=== PATIENT | female | born 2000 | race Caucasian/White ===

== ENCOUNTER 2021-07-10 14:31 | Emergency (ER) | payer OTHER, SELFPAY ==
[2021-07-10 15:19] VITALS: BP 104/70; PULSE 84; RESP 18; TEMP 36.4; O2SAT 98; BMI 26.9
[2021-07-10 16:49] LABS: UPreg QC Valid YES; Urine Pregnancy NEGATIVE (NEGATIVE)
--- NOTE | 2021-07-10 17:10 | ED_ITS ---
HPI - Eye Problem General Chief complaint: Headache Stated complaint: eye pain & swelling Time Seen by Provider: 07/10/21 16:56 Source: patient Mode of arrival: ambulatory Limitations: no limitations History of Present Illness HPI Narrative: 20-year-old female with a history of migraines presents to the ER with acute onset of right eye pain, foreign body sensation, increased watering and some swelling. She states this happened a few hours ago when she was at her grandma's house. She is wearing her eyeglasses at the time. She denies any trauma but it feels like something is stuck in there. she also states she had acute onset of her migraine that started about 2 or 3 hours ago as well. She she takes Motrin for her migraines with improvement. She has no neurological complaints. No vision changes. MD chief complaint: eye pain, eye redness and foreign body Onset (ago): hour(s) Onset description: sudden Duration: constant Location: right eye Eye Symptoms: burning, redness, pain and foreign body sensation Place: home Mechanism: none Severity: moderate Severity scale (1-10): 6 If Pain, Quality: burning and aching Associated symptoms: headache Treatments Prior to Arrival: none Related Data Patient tetanus UTD: Yes Previous Rx's Medication Instructions Recorded xsxpnynbgx-wbzpsmxmtrrdw-ubidzvle 1 cap PO Q6H PRN #10 cap 07/10/21 50 mg-300 mg-40 mg capsule (Fioricet) sulfacetamide sodium 10 % eye 1 drp OPHTHALMIC-RIGHT Q4H #5 ml 07/10/21 drops (Bleph-10) Allergies Allergy/AdvReac Type Severity Reaction Status Date / Time No Known Allergies Allergy Verified 07/10/21 15:19 Review of Systems Review of Systems: Constitutional: No Fever, No Chills Eyes: + Eye Pain, + Swelling, + Redness, No vision changes Cardiovascular: No Chest Pain, No SOB, No Orthopnea, No Edema Respiratory: No Cough, No Sputum Gastrointestinal: No Nausea, No Vomiting, No Diarrhea, No abdominal Pain Genitourinary: No Dysuria, No Urinary Frequency, No Hematuria Musculoskeletal: No joint pain, No Myalgias Skin: No Skin Lesions, No rash Neuro: No Weakness, No Numbness, No Dizziness, + Headache Heme/Lymph: No Bruising, No Lymphadenopathy PMFSH Past Medical History Medical History (Updated 07/10/21 @ 18:21 by VALENTINA Shoemaker) Frequent headaches Social History Social History Alcohol intake: never Patient Tobacco Use Status: Never used Tobacco Use of substances other than those prescribed or required for medical reasons: No Advance Directives: No Advance Directives Information Provided: Yes Patient : No Physical Exam Vital Signs: Vital Signs: Last Vital Signs Temp 98.8 F 07/10/21 17:39 Pulse 68 07/10/21 17:39 Resp 14 07/10/21 17:39 BP 110/63 07/10/21 17:39 Pulse Ox 99 07/10/21 17:39 Body Mass Index 26.9 Appearance: Alert. Oriented X3. No acute distress. Eyes: Right sclera with lateral injection. Increased watering. Pupils equal, round and reactive to light. no periorbital swelling or lid swelling. Fluorescein exam reveals a small linear abrasion at the 7 O'clock position ENT: Pharynx normal. Neck: Normal inspection. Neck supple. CVS: Normal heart rate and rhythm. Pulses normal. Respiratory: No respiratory distress. Breath sounds normal. Skin: Skin warm and dry. Normal skin color. Normal skin turgor. No rashes. Extremities: No lower extremity edema. Neuro: Oriented X 3. No motor deficit. No sensory deficit. Course Course Course Narrative: 19-year-old female presenting with right eye pain, redness, foreign body sensation along with a migraine that both started similar time. T hese are 2 separate processes. Her migraine is her typical and usually responds well to NSAIDs. Will give a dose of Ibuprofen now. Fluorescein exam revealed a small corneal abrasion. Eye was irrigated she feels much better. Injection is improved since she came in. No vision changes. Reevaluation(s) Reevaluation #1: Headache improved. Will plan to discharge patient with Fioricet and topical antibiotic drops to prevent infection. Patient counseled and is stable for discharge home with supportive care. MDM - Eye Problem Lab Data Labs: Lab Results 07/10/21 Range/Units 15:59 Urine Test NEGATIVE (NEGATIVE) Critical Care Time Critical Care Time Critical Care Time: No Discharge Plan Discharge Clinical Impression: Migraine Qualifiers: Migraine type: unspecified Status migrainosus presence: without status migrainosus Intractability: not intractable Qualified Code(s): G43.909 - Migraine, unspecified, not intractable, without status migrainosus Corneal abrasion Qualifiers: Encounter type: initial encounter Laterality: right Qualified Code(s): S05.01XA - Injury of conjunctiva and corneal abrasion without foreign body, right eye, initial encounter Patient Disposition: Home, Self-Care Instructions: Migraine Headache (ED), Corneal Abrasion (ED) Prescriptions: New qvuoydckfr-qzdzirswponuj-rglx [Fioricet] 50-300-40 mg capsule 1 cap PO Q6H PRN (Reason: pain) Qty: 10 RF: 0 sulfacetamide sodium [Bleph-10] 10 % drops 1 drp ophthalmic-Right Q4H Qty: 5 RF: 0 Interventions: ED Discharge Assessment Last Done: 07/10/21 18:59 Discharge Date/Time: 07/10/21 18:59
[2021-07-10 17:39] VITALS: BP 110/63; PULSE 68; RESP 14; TEMP 37.1; O2SAT 99
[2021-07-10] MEDS: Ibuprofen 600 MG TABLET PO (18:05)
[2021-07-10] MEDS: Tetracaine HCl/PF 0.5% Oph Sol 4 ML DROPS 1 DROP EYE-LEFT (18:06)
[2021-07-10] MEDS: Fluorescein Sodium STRIP 1 STRIP EYE-RIGHT (18:06)
[2021-07-10] MEDS: Butalb/Acetamin/Caff 50/325/40 TABLET 1 TAB PO (18:08)
--- NOTE | 2021-07-10 18:09 | PC.NURSE ---
Patient c/o headache posterior head 03/29 medicated with fiorocet and ibuprofen. eye drop given. vital signs stable. Will continue to monitor.
== END 2021-07-10 18:59 | disposition home or self-care (01) ==
PROVIDERS: Emergency Provider Emergency Medicine
DX: S05.01XA Injury of conjunctiva and corneal abrasion without foreign body, right eye, initial encounter (principal); G43.909 Migraine, unspecified, not intractable, without status migrainosus; X58.XXXA Exposure to other specified factors, initial encounter; Y93.9 Activity, unspecified; Y92.9 Unspecified place or not applicable; Y99.9 Unspecified external cause status; Z79.899 Other long term (current) drug therapy
CPT/HCPCS: 81025; 99283; 99284

== ENCOUNTER 2022-06-19 14:44 | Inpatient (IN) | payer OTHER, SELFPAY ==
--- NOTE | ~2022-06-19 | CT_ITS ---
EXAMINATION: CT ABDOMEN AND PELVIS WITH CONTRAST CLINICAL INFORMATION: Right lower quadrant and flank pain COMPARISON: 08/30/2019 TECHNIQUE: Multidetector volumetric images were obtained from the superior aspect of the liver through the pubic symphysis following administration 85 mL of Omnipaque 350 intravenous contrast. Sagittal and coronal reformatted images were obtained on the technologist's workstation. Oral contrast: No This CT examination was performed using dose optimization techniques as appropriate, variously including the following: *Automated exposure control *Adjustment of mA and/or kV according to patient size (this includes techniques or standardized protocols for targeted exams where dose is matched to indication/reason for exam; i.e. extremities or head) *Use of iterative reconstruction technique DLP: 415 mGy-cm FINDINGS: LUNG BASES: The visualized lung bases are unremarkable. LIVER, GALLBLADDER, AND BILIARY TREE: The liver is normal in size, shape, and attenuation. No focal hepatic lesion or biliary ductal dilatation is present. The gallbladder is unremarkable with no evidence of radiopaque gallstones, gallbladder wall thickening, or obvious pericholecystic inflammatory changes. PANCREAS: Unremarkable. SPLEEN: Unremarkable. ADRENAL GLANDS: Unremarkable. KIDNEYS AND URETERS: The kidneys are normal in size, shape, and attenuation. No hydronephrosis, hydroureter, or calculi seen. No perinephric stranding. BLADDER: Minimally distended and grossly unremarkable. GASTROINTESTINAL TRACT: No evidence of bowel obstruction or significant wall thickening. The distal portion of the appendix is a slightly thick-walled appearance and is mildly dilated to 8 mm in diameter. Though no significant surrounding inflammatory change is seen at this time, appearance raises concern for mild changes of acute appendicitis in the setting of right lower quadrant pain. No free air is seen. ABDOMINAL WALL: No significant hernia is appreciated. LYMPH NODES: Normal. VASCULAR: Unremarkable. PELVIC VISCERA: Unremarkable for patient age. Trace pelvic free fluid noted. OSSEOUS STRUCTURES: Unremarkable. CT/CT abdomen pelvis w IV con IMPRESSION: 1. Mildly dilated, thick-walled appearance of the distal portion of the appendix, raising concern for mild changes of acute appendicitis in the setting of right lower quadrant pain. 2. Trace pelvic free fluid, which may be physiologic.
[2022-06-19 16:17] VITALS: BP 102/72; PULSE 81; RESP 18; TEMP 36.6; O2SAT 96; BMI 27.8
[2022-06-19 16:34] LABS: MANUAL DIFF FLAG NO
[2022-06-19 16:36] LABS: Basophils Absolute Auto 0.1 X10*3/uL (0.0-0.2); Basophils Percent Auto 0.7 % (0-2); Eosinophils Absolute Auto 0.5 X10*3/uL (0.0-0.4); Eosinophils Percent Auto 6.4 % (0-4); Hematocrit 40.4 % (37.0-47.0); Hemoglobin 13.5 g/dl (12.0-16.0); Imm Gran Abs Auto 0.02 X10*3/uL (0.00-0.03); Imm Gran Pct Auto 0.2 % (0.0-0.4); Lymphocytes Absolute Auto 1.6 X10*3/uL (1.2-4.9); Lymphocytes Percent Auto 19.5 % (20-40); Mean Corpuscular HGB Conc 33.4 g/dl (31.0-35.0); Mean Corpuscular Hemoglobin 27.8 pg (27.0-33.0); Mean Corpuscular Volume 83.1 fL (80.0-98.0); Mean Platelet Volume 9.8 fL (9.4-12.3); Monocytes Absolute Auto 0.4 X10*3/uL (0.1-1.2); Monocytes Percent Auto 5.1 % (2-11); Neutrophils Absolute Auto 5.5 x10*3/uL (2.0-8.3); Neutrophils Percent Auto 68.1 % (45-73); Platelet Count 270 X10*3/uL (160-400); Red Blood Count 4.86 X10*6/uL (4.20-5.50); Red Cell Distribution Width 12.4 % (11.0-16.0); White Blood Count 8.1 X10*3/uL (4.8-10.8)
[2022-06-19 16:52] LABS: Alanine Aminotransferase 16 U/L (0-31); Albumin Level 4.3 g/dL (3.5-5.0); Alkaline Phosphatase 88 U/L (39-117); Anion Gap 13 (12-20); Aspartate Amino Transferase 17 U/L (5-31); Bilirubin Total 0.3 mg/dL (0.0-1.0); Blood Urea Nitrogen 15 mg/dL (9-16); Calcium 9.3 mg/dL (8.4-10.2); Carbon Dioxide 25 mmol/L (22-29); Chloride 106 mmol/L (96-108); Creatinine Clr Calc Pharmacy 101.4; Estimated Glomerular Filt Rate > 60; Glucose Random 117 mg/dL (60-115); Potassium 3.8 mmol/L (3.3-5.1); Sodium 140 mmol/L (135-145); Total Protein 7.3 g/dL (6.5-8.0)
--- NOTE | 2022-06-19 22:19 | ED_ITS ---
HPI - General Adult General Chief complaint: Abdominal Pain Stated complaint: R flank pain/Fever Time Seen by Provider: 06/19/22 22:17 Source: patient Mode of arrival: ambulatory Limitations: no limitations History of Present Illness HPI narrative: 21 year old female hx of asthma and lactose intolerance presents w/ 3 days of RLQ with radiation to R. flank. Patient reports pain is severe in nature 03/29, reports it was initially and aching pain/ discomfort however now it is very uncomfortable and describes it as a constant sharp pain. Pain is worse when laying on left side. Tells me it has been gradually worsening over the past few days. Reports subjective fevers and chills which resolved with advil. Patient still has her appendix and gallbladder. Patient tells me she has baseline chest discomfort and shortness of breath secondary to asthma however unchanged from her typical. Patient is not on blood thinners, no history of PE or DVT, not on control, denies long travel, denies history of smoking, no unilateral leg swelling or recent surgeries, no history of cancer. She has been eating and dri nking. Denies changes in urination, vomiting, headache, dizziness, weakness. Related Data Previous Rx's Medication Instructions Recorded vrpqmglleo-gakfvutlnuexg-jpiifisw 1 cap PO Q6H PRN pain #10 caps 07/10/21 50 mg-300 mg-40 mg capsule (Fioricet) sulfacetamide sodium 10 % eye 1 drp ophthalmic-Right Q4H #5 mL 07/10/21 drops (Bleph-10) Allergies Allergy/AdvReac Type Severity Reaction Status Date / Time No Known Allergies Allergy Verified 06/19/22 16:17 Review of Systems Review of Systems: Constitutional : No Weight loss, + Fever, + Chills, + Fatigue, + Malaise ENT/Mouth : No sore throat, No Rhinorrhea Eyes: No Eye Pain, No Swelling, No Redness Cardiovascular : No Chest Pain, No SOB, No Dyspnea on Exertion, No Orthopnea, No Edema, No Palpitations Respiratory : No Cough, No Sputum, No Wheezing Gastrointestinal : + Nausea, No Vomiting, No Diarrhea, No Constipation, + abdominal Pain, No Hematochezia, No Melena Genitourinary : No Dysuria, No Urinary Frequency, No Hematuria, Musculoskeletal : No joint pain, No Myalgias, No Joint Swelling, + flank pain Skin : No Skin Lesions, No rash Neuro : No Weakness, No Numbness, No Dizziness, No Headache Psych : No Anxiety/Panic, No Depression All other systems reviewed and are negative Yes all other systems are reviewed and are negative [facility] Past Medical History Attestation statement: The following information was validated with the patient. Source: old records reviewed and nursing notes reviewed Medical History Frequent headaches Social History Social History Alcohol intake: never Patient Tobacco Use Status: Never used Tobacco Advance Directives: No Advance Directives Information Provided: No Physical Exam ED Vital Signs: Vital Signs - 24 hr 06/19/22 16:17 Temperature 97.8 F Pulse Rate 81 Respiratory Rate 18 Blood Pressure 102/72 Pulse Oximetry 96 Oxygen Delivery Method Room Air BMI result Body Mass Index 27.8 vss Appearance: Alert.? Oriented X3.? No acute distress.? Head: Normocephalic, atraumatic, no step-offs or deformities Eyes: Pupils equal, round and reactive to light.? ENT: Pharynx normal.? Neck: Normal inspection.? Neck supple.? CVS: Normal heart rate and rhythm.? Pulses normal.? Respiratory: No respiratory distress.? Breath sounds normal.? Abdomen: Soft and + RLQ & RUQ tenderness.?( + rosving and mcburneys point) Skin: Skin warm and dry.? Normal skin color.? Normal skin turgor.? Extremities: No lower extremity edema.? No calf ttp. 5/5 strength to bilateral upper and lower extremities Back: No CVA tenderness bilaterally Neuro: Oriented X 3.? No motor deficit.? No sensory deficit. CN 2-12 intact Course Reevaluation(s) Reevaluation #1: CBC appears to be within normal limits. Chemistry with no acute findings. Urine, hCG and CT of the abdomen pelvis pending. Time: 22:22 Reevaluation #2: CT concerning for appendicitis. Will reach out to surgery at this time. Time: 23:49 Reevaluation #3: At this time patient NPO, surgery will admit to their service. I spoke to . Time: 00:02 Medical Decision Making MDM Narrative Medical decision making narrative: 2219 21 year old female presents w/ RLQ and R. flank pain X3 days. PE pain w/ palpation of RUQ AND RLQ. VSS. Will rule out UTI/cystitis, appendicitis and cholecystiits.. No signs of acute abdomen. Unlikely pylo. Will rule out kidney stones. Medical Records Medical records reviewed: Yes I reviewed the patient's medical records. Lab Data Lab results reviewed: Yes I reviewed the patient's lab results. Result diagrams: 06/19/22 16:28 06/19/22 16:28 Labs: Lab Results 06/19/22 06/19/22 06/19/22 Range/Units 16:28 16:28 16:28 WBC 8.1 (4.8-10.8) X10*3/uL RBC 4.86 (4.20-5.50) X10*6/uL Hgb 13.5 (12.0-16.0) g/dl Hct 40.4 (37.0-47.0) % MCV 83.1 (80.0-98.0) fL MCH 27.8 (27.0-33.0) pg MCHC 33.4 (31.0-35.0) g/dl RDW 12.4 (11.0-16.0) % Plt Count 270 (160-400) X10*3/uL MPV 9.8 (9.4-12.3) fL Immature Gran % (Auto) 0.2 (0.0-0.4) % Neut % (Auto) 68.1 (45-73) % Lymph % (Auto) 19.5 L (20-40) % [place] % (Auto) 5.1 (2-11) % Eos % (Auto) 6.4 H (0-4) % Baso % (Auto) 0.7 (0-2) % Lymph # (Auto) 1.6 (1.2-4.9) X10*3/uL [place] # (Auto) 0.4 (0.1-1.2) X10*3/uL Eos # (Auto) 0.5 H (0.0-0.4) X10*3/uL Baso # (Auto) 0.1 (0.0-0.2) X10*3/uL Abs Immat Gran (auto) 0.02 (0.00-0.03) X10*3/uL Absolute Neuts (auto) 5.5 (2.0-8.3) x10*3/uL Absolute Nucleated RBC 0.000 (0.0-0.012) X10*3/uL Nucleated RBC % (auto) 0.0 (0.0-0.2) /100WBC Sodium 140 (135-145) mmol/L Potassium 3.8 (3.3-5.1) mmol/L Chloride 106 (96-108) mmol/L Carbon Dioxide 25 (22-29) mmol/L Anion Gap 13 (12-20) BUN 15 (9-16) mg/dL Creatinine 0.70 (0.5-1.4) mg/dL Estim Creat Clear Calc 101.4 Estimated GFR > 60 Random Glucose 117 H (60-115) mg/dL Calcium 9.3 (8.4-10.2) mg/dL Total Bilirubin 0.3 (0.0-1.0) mg/dL AST 17 (5-31) U/L ALT 16 (0-31) U/L Alkaline Phosphatase 88 (39-117) U/L Troponin I High Sens < 3.5 (<3.5-17.0) ng/L Total Protein 7.3 (6.5-8.0) g/dL Albumin 4.3 (3.5-5.0) g/dL Beta HCG, Quant < 2 mIU/mL Urine Color Urine Appearance Urine pH (5.0-9.0) Ur Specific [place] (1.005-1.025) Urine Protein (Neg-Trace) mg/dL Urine Glucose (UA) (Negative) mg/dL Urine Ketones (Negative) mg/dL Urine Blood (Negative) Urine Nitrite (Negative) Ur Leukocyte Esterase (Negative) 06/19/22 Range/Units 22:55 WBC (4.8-10.8) X10*3/uL RBC (4.20-5.50) X10*6/uL Hgb (12.0-16.0) g/dl Hct (37.0-47.0) % MCV (80.0-98.0) fL MCH (27.0-33.0) pg MCHC (31.0-35.0) g/dl RDW (11.0-16.0) % Plt Count (160-400) X10*3/uL MPV (9.4-12.3) fL Immature Gran % (Auto) (0.0-0.4) % Neut % (Auto) (45-73) % Lymph % (Auto) (20-40) % [place] % (Auto) (2-11) % Eos % (Auto) (0-4) % Baso % (Auto) (0-2) % Lymph # (Auto) (1.2-4.9) X10*3/uL [place] # (Auto) (0.1-1.2) X10*3/uL Eos # (Auto) (0.0-0.4) X10*3/uL Baso # (Auto) (0.0-0.2) X10*3/uL Abs Immat Gran (auto) (0.00-0.03) X10*3/uL Absolute Neuts (auto) (2.0-8.3) x10*3/uL Absolute Nucleated RBC (0.0-0.012) X10*3/uL Nucleated RBC % (auto) (0.0-0.2) /100WBC Sodium (135-145) mmol/L Potassium (3.3-5.1) mmol/L Chloride (96-108) mmol/L Carbon Dioxide (22-29) mmol/L Anion Gap (12-20) BUN (9-16) mg/dL Creatinine (0.5-1.4) mg/dL Estim Creat Clear Calc Estimated GFR Random Glucose (60-115) mg/dL Calcium (8.4-10.2) mg/dL Total Bilirubin (0.0-1.0) mg/dL AST (5-31) U/L ALT (0-31) U/L Alkaline Phosphatase (39-117) U/L Troponin I High Sens (<3.5-17.0) ng/L Total Protein (6.5-8.0) g/dL Albumin (3.5-5.0) g/dL Beta HCG, Quant mIU/mL Urine Color Yellow Urine Appearance Cloudy Urine pH 6.5 (5.0-9.0) Ur Specific [place] >= 1.030 H (1.005-1.025) Urine Protein Negative (Neg-Trace) mg/dL Urine Glucose (UA) Negative (Negative) mg/dL Urine Ketones Trace (Negative) mg/dL Urine Blood Negative (Negative) Urine Nitrite Negative (Negative) Ur Leukocyte Esterase Negative (Negative) Critical Care Time Critical Care Time Critical Care Time: No Discharge Plan Discharge Clinical Impression: Acute appendicitis Patient Disposition: Admitted As Inpatient Prescriptions: No Action lfvthvpmdx-xgklngnnaklvc-yaee [Fioricet] 50-300-40 mg capsule 1 cap PO Q6H PRN (Reason: pain) Qty: 10 0RF sulfacetamide sodium [Bleph-10] 10 % drops 1 drp ophthalmic-Right Q4H Qty: 5 0RF
--- NOTE | 2022-06-19 22:28 | ECG_ITS ---
Test Reason : SOB Blood Pressure : / mmHG Vent. Rate : 066 BPM Atrial Rate : 066 BPM P-R Int : 192 ms QRS Dur : 080 ms QT Int : 394 ms P-R-T Axes : 058 030 041 degrees QTc Int : 413 ms Sinus rhythm with marked sinus arrhythmia RSR' or QR pattern in V1 suggests right ventricular conduction delay Borderline ECG When compared with ECG of 06-MAR-2020 19:08, No significant change was found Referred By: Ronni Potter Electronically Signed By:ODILIA WRAY MD
[2022-06-19 22:45] LABS: HCG Quantitative < 2 mIU/mL
[2022-06-19 22:56] LABS: Troponin-I High Sensitivity < 3.5 ng/L (<3.5-17.0)
[2022-06-19 23:03] LABS: Appearance Urine Cloudy; Color Urine Yellow; Glucose Urine UA Negative (Negative); Leukocyte Esterase Urine Negative (Negative); Nitrite Urine Negative (Negative); PH 6.5 (5.0-9.0); Specific Gravity - Urine >= 1.030 (1.005-1.025); Urine Blood Negative (Negative); Urine Ketones Trace mg/dL (Negative); Urine Protein Negative (Neg-Trace)
[2022-06-19] MEDS: iohexoL 350 MG/ML 100 ML INFUS..BTL 85 ML IV (23:29)
[2022-06-20] VITALS (14 sets, daily range): BP systolic 103–120; BP diastolic 57–79; PULSE 61–96; RESP 14–19; TEMP 36.2–36.8; O2SAT 95–100
[2022-06-20] MEDS: Ketorolac Tromethamine 15 MG/ML VIAL 30 MG IVPUSH (00:07)
[2022-06-20] MEDS: 0.9 % Sodium Chloride 1,000 ML 999 ML IV (00:07)
--- NOTE | 2022-06-20 00:10 | PC.NURSE ---
pt a&ox3, vss, 20G IV placed left AC, pt reporting 8/10 right-sided abd/flank pain, medicated per provider order. EKG pending.
[2022-06-20] MEDS: Piperacillin Sodium/Tazobactam 3.375 GM in 0.9 % Sodium Chloride 50 ML IV (02:23)
[2022-06-20] MEDS: Dextrose 5 % and 0.9 % NaCl 1,000 ML 100 ML IVCONT ×2 (02:37→16:27)
[2022-06-20 02:45] LABS: COVID-19 Test Negative (Negative)
[2022-06-20 02:54] LABS: Lactic Acid 0.7 mmol/L (0.5-2.0)
--- NOTE | 2022-06-20 07:35 | PHA.MEDREC ---
Pharmacy Consult ? Medication Reconciliation Pharmacy has completed the medication reconciliation.
--- NOTE | 2022-06-20 08:32 | P.HPGS_ITS ---
History of Present Illness History of Present Illness Date of Service: 06/20/22 <Shala Bruce PA-C - Last Filed: 06/20/22 08:50> 06/20/22 <Sanford Lauren MD - Last Filed: 06/20/22 09:52> Chief complaint: abdo pain <Shala Bruce PA-C - Last Filed: 06/20/22 08:50> Narrative: Diego Collier is a 21 year old female with PMH of asthma who presented to the ED with complaints of RLQ pain. She reports she developed the pain on Sunday. It was located in the lower abdominal pain. It became more localized to the RLQ and sharp on Sunday and increased in severity. She therefore presented to the ED for evaluation. The pain was associated with nausea without vomiting and low grade fever/chills. She denies diarrhea. She denies a previous similar pain. Work up in the ED included CBC/BMP/LFTs which were all WNL. CT scan abd/pelvis showed the tip of the appendix is slightly thick-walled and is mildly dilated. She reports she has asthma. She has not been on any medications or inhalers because she has not seen her PCP although she reports difficulty with managing her symptoms since she had Covid last year. <Shala Bruce PA-C - Last Filed: 06/20/22 08:50> Review of Systems Constitutional: Constitutional: Reports as per HPI and Denies malaise <Shala Bruce PA-C - Last Filed: 06/20/22 08:50> ENT: Denies dizziness <Shala Bruce PA-C - Last Filed: 06/20/22 08:50> Cardiovascular: Cardiovascular: Denies chest pain and Denies dyspnea <Shala Bruce PA-C - Last Filed: 06/20/22 08:50> Respiratory: Respiratory: Denies dyspnea <THOMAS Duncan Last Filed: 06/20/22 08:50> Gastrointestinal: Gastrointestinal: Reports as per HPI <THOMAS Duncan Last Filed: 06/20/22 08:50> Genitourinary: Genitourinary: Denies hematuria and Denies dysuria <Shala Bruce PA-C - Last Filed: 06/20/22 08:50> Integumentary/Breasts: Skin/Breast: Denies rash <Shala Bruce PA-C - Last Filed: 06/20/22 08:50> Neurologic: Denies dizziness <Shala Bruce PA-C - Last Filed: 06/20/22 08:50> [facility] Past Medical History Medical History: Medical History (Updated 06/20/22 @ 08:40 by Shala Bruce PA-C) Asthma Frequent headaches <Shala Bruce PA-C - Last Filed: 06/20/22 08:50> Surgical History Surgical History: Surgical History (Updated 06/20/22 @ 08:41 by Shala Bruce PA-C) History of tonsillectomy <Shala Bruce PA-C - Last Filed: 06/20/22 08:50> Social History Social History: Social History Alcohol intake: never Patient Tobacco Use Status: Never used Tobacco Are you DNR?: No Advance Directives: No Advance Directives Information Provided: No Recently lost weight without trying: No Patient : No service: No Current occupational status: employed <Shala Bruce PA-C - Last Filed: 06/20/22 08:50> Meds Allergies/Adverse reactions: Allergies Allergy/AdvReac Type Severity Reaction Status Date / Time No Known Allergies Allergy Verified 06/19/22 16:17 <Shala Bruce PA-C - Last Filed: 06/20/22 08:50> Active Medications: Current Medications Dextrose/Sodium Chloride (D5ns) 1,000 mls @ 100 mls/hr IVCONT .Q10H JOSE MARTIN Last Admin: 06/20/22 02:37 Dose: 100 mls/hr Piperacillin Sod/Tazobactam (Sod 3.375 gm/ Sodium Chloride) 50 mls @ 100 mls/hr IV RQ6H JOSE MARTIN Ondansetron HCl (Ondansetron Hcl 4 Mg/2 Ml Vial) 4 mg IVPUSH Q8H PRN PRN Reason: Nausea and Vomiting Pharmacy Consult (Consult Rx Perform Med Rec) 1 each MISCELLANE ONCE PRN PRN Reason: Consult order Sodium Chloride (0.9 % Sodium Chloride Flush 3 Ml Syringe) 3 ml IVFLUSH QSALFT COUNTS INCLUDE 234 BEDS AT [facility] Last Admin: 06/20/22 07:35 Dose: Not Given <THOMAS Duncan Last Filed: 06/20/22 08:50> Home medications: Home Medications Medication Instructions Recorded Confirmed Last Taken Type cetirizine 10 mg tablet (Zyrtec) 10 mg PO DAILY 06/20/22 06/20/22 06/18/22 History <THOMAS Duncan Last Filed: 06/20/22 08:50> Physical Exam Vital Signs: Vital Signs: Last Vital Signs Temp 97.5 F 06/20/22 04:33 Pulse 78 06/20/22 04:33 Resp 16 06/20/22 04:33 BP 103/57 L 06/20/22 04:33 Pulse Ox 99 06/20/22 04:33 O2 Del Method 06/20/22 04:33 BMI result Body Mass Index 27.8 <THOMAS Duncan Last Filed: 06/20/22 08:50> Const: General: comfortable, no acute distress and alert <THOMAS Duncan Last Filed: 06/20/22 08:50> Orientation/consciousness: patient oriented x3 <THOMAS Duncan Last Filed: 06/20/22 08:50> Resp: Effort & Inspection: normal respiratory effort <THOMAS Duncan Last Filed: 06/20/22 08:50> Auscultation: clear to auscultation bilaterally <THOMAS Duncan Last Filed: 06/20/22 08:50> Cardio: Rate: regular rate <THOMAS Duncan Filed: 06/20/22 08:50> GI: Inspection: No distended and No scar <THOMAS Duncan Last Filed: 06/20/22 08:50> Palpation (GI): Soft to palpation, Tenderness to palpation present (GI) in the RUQ, at McBurney's point and Rovsing's sign positive, no guarding and not rigid <THOMAS Duncan Last Filed: 06/20/22 08:50> Percussion: Yes normal to percussion <THOMAS Duncan Last Filed: 06/20/22 08:50> Skin: General skin exam: no rashes or lesions noted <THOMAS Duncan Last Filed: 06/20/22 08:50> Neuro: General: patient oriented x3 and moves all extremities <THOMAS Duncan Last Filed: 06/20/22 08:50> Extrem: General: Yes no clubbing, cyanosis or edema <THOMAS Duncan Last Filed: 06/20/22 08:50> Results Results Labs: Short CBC 06/19/22 Range/Units 16:28 WBC 8.1 (4.8-10.8) X10*3/uL Hgb 13.5 (12.0-16.0) g/dl Hct 40.4 (37.0-47.0) % Plt Count 270 (160-400) X10*3/uL BMP 06/19/22 16:28 Sodium 140 Potassium 3.8 Chloride 106 Carbon Dioxide 25 BUN 15 Creatinine 0.70 Calcium 9.3 Liver Function 06/19/22 Range/Units 16:28 Total Bilirubin 0.3 (0.0-1.0) mg/dL AST 17 (5-31) U/L ALT 16 (0-31) U/L Alkaline Phosphatase 88 (39-117) U/L Albumin 4.3 (3.5-5.0) g/dL Urine 06/19/22 Range/Units 22:55 Urine Color Yellow Urine Appearance Cloudy Urine pH 6.5 (5.0-9.0) Ur Specific [place] >= 1.030 H (1.005-1.025) Urine Protein Negative (Neg-Trace) mg/dL Urine Glucose (UA) Negative (Negative) mg/dL <THOMAS Duncan Last Filed: 06/20/22 08:50> Assessment and Plan (1) Acute appendicitis: Status: Acute <THOMAS Duncan Last Filed: 06/20/22 08:50> Patient with right lower quadrant pain x3 days states that this does not seem to be getting better CT scan suggestive of tip appendicitis exam - tender in right lower quadrant, with Rovsing sign I explained to her option of proceeding with appendectomy versus IV antibiotic treatment and observation I reviewed benefits of each option she wants to proceed with appendectomy - I reviewed with her the technique of lap appy possible open and explained the risks, benefits, and alternatives she says he understands and wants to proceed. Patient was seen and examined independently - agree with VALENTINA Bruce <Sanford Lauren MD - Last Filed: 06/20/22 09:52> 21 year old female who presented to the ED with complaints of RLQ pain with RLQ tenderness and +rovsign sign on exam with CT demonstrating dilated and thickened tip of the appendix. She is well appearing with stable vitals and a normal leukocytosis. Treatment options were discussed including observation and IV abx or proceeding with lap appendectomy possible open. Risks and benefits were discussed including infection, bleeding, injury to surrounding structures including bowel, liver, vasculature, bile ducts, risk of MO and blood clots. She elected to proceed with surgery. She will be added onto the OR schedule for today. She is NPO and on IVF with PRN analgesics. <Shala Bruce PA-C - Last Filed: 06/20/22 08:50> Quality Stroke Does the patient have a stroke diagnosis?: No <Shala Bruce PA-C - Last Filed: 06/20/22 08:50> VTE Prior VTE?: No <Shala Bruce PA-C - Last Filed: 06/20/22 08:50> VTE Risk Level:: Surgical - low <Shala Bruce PA-C - Last Filed: 06/20/22 08:50> VTE Device Contraindication: Treatment Not Indicated <Shala Bruce PA-C - Last Filed: 06/20/22 08:50> VTE Drug Contraindication: Treatment Not Indicated <Shala Bruce PA-C - Last Filed: 06/20/22 08:50> Procedures Date of Service Date of Service: 06/20/22 <Shala Bruce PA-C - Last Filed: 06/20/22 08:50>
--- NOTE | 2022-06-20 08:42 | MHC.CM.PN ---
Home self care is the goal and CM will continue to follow for possible need to adjust the dc plan.
--- NOTE | 2022-06-20 10:06 | PC.NURSE ---
PT SENT TO or
[2022-06-20] MEDS: Lactated Ringers 1,000 ML 50 ML IVCONT (10:10)
--- NOTE | 2022-06-20 13:17 | W.PM.OPN ---
Operative Note Operative Note Date of Service: 06/20/22 Narrative: Preop diagnosis: Acute appendicitis Postop diagnosis: Acute appendicitis Procedure: Laparoscopic appendectomy Surgeon: Sanford Lauren MD Supervisor [employer]: VALENTINA Kay student The patient is a 21-year-old female admitted last night because of right lower quadrant pain with a CT scan suggestive of early acute appendicitis. She continued to have pain this morning and was tender on the right lower quadrant with Rovsing's sign. I explained to her the option of proceeding with appendectomy. She understood the technique of laparoscopic appendectomy and wanted to proceed. She was aware of the risks, benefits, and alternatives. She was brought to the operating room and placed supine under general anesthesia via endotracheal tube. A Andino catheter was inserted. The abdomen was prepped and draped in the usual sterile fashion. A surgical time-out was done. The patient received Cefotan 2 g IV preoperatively. I made a short supraumbilical incision using a blade 15 and this was carried down through the full-thickness of the skin and subcutaneous fat down to the fascia. The fascia was incised. The peritoneum was entered. Through this incision a Turner port was introduced. Pneumoperitoneum was introduced to a pressure of 15 minutes hg. From here on the rest of procedure was done under vision with the 5 mm 30 degree laparoscope. With laparoscopic visualization I proceeded to insert a 5 mm port in the left lower quadrant as well as the suprapubic margin via two short stab incisions. Graspers were placed through these working ports. The patient was placed bertram head-down and [id number] position. The small bowel loops were reflected away from the right lower quadrant. The appendix was immediately visualized. This was looped upon itself. There were adhesions around the appendix which I carefully lysed using blunt dissection with the graspers. By doing so I was able to completely visualize the entire length of the appendix. The tip of the appendix appeared edematous and indurated. The rest of the appendix did not appear to be significantly inflamed. I carefully did blunt dissection using the [place] dissector on the mesentery of the base of the appendix. Once a good mesenteric window was created, I used the Endo-MALIK 30 mm stapler across the base of the appendix. This was fired to divide the base of the appendix. There was note of a residual attached wall of appendix which we had to divide by a 2nd application of the Endo-MALIK 30 mm stapler. The appendix was then completely transected. I retracted the appendix anteriorly to put this on stretch and expose the entire mesoappendix. I used the LigaSure to divide the entire mesentery of the appendix until this was completely transected. The appendix therefore was retrieved through an endobag through the umbilical incision. I reinserted the Turner port and re-insufflated. I examined all 4 quadrants. There was some minimal free fluid in the cul-de-sac. The uterus appeared mildly erythematous but there were no other significant findings on the rest of the peritoneal cavity. I observed the staple line. This appeared intact and hemostatic. I pulled the omentum to cover the staple line. I then proceeded to desufflate through the port sites. I removed all ports and closed the fascia of the umbilical incision with a nnbvoz-de-[id number] Dexon 0 stitch. Skin closure was achieved on all incisions using Dexon 4-0 subcuticular running sutures. All incisions were infiltrated with Marcaine 0.5% for postop analgesia. Steri-Strips and dressings were applied. The Andino catheter was removed. The procedure was completed. The patient tolerated the procedure well. There were no immediate complications. Initial and final counts of sponges and instruments were correct. Estimated blood loss was about 20 cc. The patient was extubated without difficulty and transferred to recovery room with stable vital signs.
[2022-06-20] MEDS: ondansetron HCL 4 MG/2 ML VIAL IVPUSH ×2 (14:15→18:42)
[2022-06-20] MEDS: oxyCODONE HCl Immed Release 5 MG TABLET PO (14:27)
--- NOTE | 2022-06-20 14:46 | PM.EVENT ---
Event Note Date of Service: 06/28/22 Event Note: Seen postop Underwent laparoscopic appendectomy earlier Seems to have adequate pain control Stable vital signs Abdomen soft Appendix was indurated at the tip Pain management Diet as tolerated Possible home tomorrow Discussed with patient Jeanette figueroa
[2022-06-20] MEDS: Morphine Sulfate 2 MG/ML CARTRIDGE IVPUSH (16:26)
[2022-06-20] MEDS: 0.9 % Sodium Chloride Flush 3 ML SYRINGE IVFLUSH (16:27)
[2022-06-21] MEDS: Dextrose 5 % and 0.9 % NaCl 1,000 ML 100 ML IVCONT (02:06)
[2022-06-21 03:57] VITALS: BP 106/68; PULSE 78; RESP 16; TEMP 36.1; O2SAT 97
[2022-06-21] MEDS: oxyCODONE HCl Immed Release 5 MG TABLET PO (04:05)
[2022-06-21] MEDS: Ibuprofen 600 MG TABLET PO ×2 (04:05→12:45)
[2022-06-21 07:37] VITALS: BP 113/65; PULSE 83; RESP 18; TEMP 36.9; O2SAT 98
--- NOTE | 2022-06-21 08:07 | PM.PNGS ---
Subjective Subjective Date of Service: 06/21/22 Interval history: says she is ok good pain control no N/V Physical Exam Vital Signs: Vital Signs: Last Vital Signs Temp 98.5 F 06/21/22 07:37 Pulse 83 06/21/22 07:37 Resp 18 06/21/22 07:37 BP 113/65 06/21/22 07:37 Pulse Ox 98 06/21/22 07:37 O2 Del Method 06/21/22 07:37 O2 Flow Rate 2 06/20/22 13:45 BMI result Body Mass Index 27.8 Const: General: comfortable and no acute distress Resp: Effort & Inspection: normal respiratory effort Cardio: Rate: regular rate GI: Other: dressings dry Palpation (GI): Soft to palpation, not firm and no guarding Objective Data Active Medications Fentanyl (Fentanyl Citrate/Pf 100 Mcg/2 Ml Vial) 50 mcg IVPUSH Q5M PRN; Protocol PRN Reason: Pain, Moderate (Pain Scale 4-6 Hydromorphone HCl (Hydromorphone Hcl 0.5 Mg/0.5 Ml Syringe) 0.5 mg IVPUSH Q5M PRN; Protocol PRN Reason: Pain, Severe (Pain Scale 7-10) Dextrose/Sodium Chloride (D5ns) 1,000 mls @ 100 mls/hr IVCONT .Q10H JOSE MARTIN Last Admin: 06/21/22 02:06 Dose: 100 mls/hr Documented By: MARIANA Promethazine HCl 6.25 mg/ (Sodium Chloride) 50.25 mls @ 201 mls/hr IV ONCE PRN PRN Reason: Nausea and Vomiting Ibuprofen (Ibuprofen 600 Mg Tablet) 600 mg PO Q6H PRN PRN Reason: Pain, Moderate (Pain Scale 4-6 Last Admin: 06/21/22 04:05 Dose: 600 mg Documented By: MARIANA Morphine Sulfate (Morphine Sulfate 2 Mg/Ml Cartridge) 2 mg IVPUSH Q3H PRN; Protocol PRN Reason: Pain, Severe (Pain Scale 7-10) Last Admin: 06/20/22 16:26 Dose: 2 mg Documented By: ROSA M Ondansetron HCl (Ondansetron Hcl 4 Mg/2 Ml Vial) 4 mg IVPUSH Q8H PRN PRN Reason: Nausea and Vomiting Last Admin: 06/20/22 18:42 Dose: 4 mg Documented By: SHERRELL Oxycodone HCl (Oxycodone Hcl Immed Release 5 Mg Tablet) 5 mg PO Q4H PRN PRN Reason: Pain, Moderate (Pain Scale 4-6 Last Admin: 06/21/22 04:05 Dose: 5 mg Documented By: MARIANA Pharmacy Consult (Consult Rx Perform Med Rec) 1 each MISCELLANE ONCE PRN PRN Reason: Consult order Sodium Chloride (0.9 % Sodium Chloride Flush 3 Ml Syringe) 3 ml IVFLUSH QSHIFT [facility] Last Admin: 06/21/22 08:05 Dose: Not Given Documented By: SILKE Non-Admin Reason: IV Running Labs CBC & Chem 7: 06/19/22 16:28 06/19/22 16:28 Microbiology Microbiology Results: Microbiology 06/20/22 02:16 Blood Culture - Preliminary Blood - Venous No growth after 24 hours. 06/20/22 02:16 Blood Culture - Preliminary Blood - Venous No growth after 24 hours. Procedures Date of Service Date of Service: 06/21/22 Progress Note: A&P Assessment and plan (1) Acute appendicitis: Status: Acute Assessment and Plan: s/p lap appy doing well comfortable abd soft dressings dry ok to dc home today instructions reviewed with pt check path report, ffup in office Time Spent With Patient Time: Total time spent is greater than 50% in coordination of care (as documented) at patient's floor/unit and/or counseling patient: Quality Stroke Does the patient have a stroke diagnosis?: No VTE Prior VTE?: No VTE Risk Level:: Surgical - low VTE Device Contraindication: Treatment Not Indicated VTE Drug Contraindication: Treatment Not Indicated
--- NOTE | 2022-06-21 08:27 | MHC.CM.PN ---
PATIENT IS DC HOME WITH NO NEED FOR SERVICES. RN AWARE OF THE PLAN.
[2022-06-21] MEDS: ondansetron HCL 4 MG/2 ML VIAL IVPUSH (09:59)
--- NOTE | 2022-06-21 14:14 | PM.DS ---
DS: Providers Provider Date of Service: 06/21/22 Date of admission: 06/20/22 00:27 Date of discharge: 06/21/22 Primary care physician: Unknown Physician Attending physician on admission: Alda Stewart Consults: 06/19/22 23:59 Consult to General Surgery Stat Consulting Provider: Alda Stewart Reason for consultation: acute appendicits Attending physician on discharge: Sanford Lauren DS: Diagnosis Discharge Diagnosis (1) Acute appendicitis: Status: Acute DS: Summary Hospital Course Hospital Course: BRIEF HPI: Diego Collier is a 21 year old female with PMH of asthma who presented to the ED with complaints of RLQ pain. She reports she developed the pain on Sunday. It was located in the lower abdominal pain. It became more localized to the RLQ and sharp on Sunday and increased in severity. She therefore presented to the ED for evaluation. The pain was associated with nausea without vomiting and low grade fever/chills. She denies diarrhea. She denies a previous similar pain. Work up in the ED included CBC/BMP/LFTs which were all WNL. CT scan abd/pelvis showed the tip of the appendix is slightly thick-walled and is mildly dilated. HOSPITAL COURSE: She was admitted to the surgical service for treatment of acute appendicitis. She was started on IV zosyn, IVF and kept NPO. Treatment options were discussed with her including proceeding with lap appy or observation and IV abx. She elected to proceed with surgery. She was added onto the OR schedule for that day. On 06/20/22, a laparoscopic appendectomy was performed by Dr. Lauren without complication. The patient tolerated the procedure well and was admitted for observation. She had an uncomplicated recovery course. On POD #1, she was tolerating a solid diet without nausea or vomiting. Her pain was controlled on PO analgesics. She was ambulating without difficulty. Her abdomen was benign with appropriate post op tenderness and clean dressings. She felt ready for discharge to home. She was discharged to home on 06/21/22 in stable condition. She is to follow up with Dr. Lauren in office in 2 weeks. Status at Discharge Functional status at discharge: independent ambulation Overall status at discharge: patient is progressing back to baseline Time Spent with Patient Time attestation: Total time spent providing and/or coordinating discharge services: Discharge coordination time: Greater than 30 minutes Quality: Safe Use of Opioids Does Pt have an Active Cancer Diagnosis on the Problem List?: No Quality: Stroke Does the patient have a stroke diagnosis?: No Physical Exam Vital Signs: Vital Signs: Last Vital Signs Temp 98.5 F 06/21/22 07:37 Pulse 83 06/21/22 07:37 Resp 18 06/21/22 07:37 BP 113/65 06/21/22 07:37 Pulse Ox 98 06/21/22 07:37 O2 Del Method 06/21/22 07:37 O2 Flow Rate 2 06/20/22 13:45 BMI result Body Mass Index 27.8 Const: General: comfortable, no acute distress and alert Orientation/consciousness: patient oriented x3 Resp: Effort & Inspection: normal respiratory effort GI: Inspection: No distended and Yes incision (dressings c/d/i) Palpation (GI): Soft to palpation, Tenderness to palpation present (GI) (mild, incisional), no guarding and not rigid Skin: General skin exam: no rashes or lesions noted Neuro: General: patient oriented x3 Extrem: General: Yes no clubbing, cyanosis or edema DS: Data Data Completed and Pending Pending studies at discharge: Pending at discharge 06/20/22 12:53 Surgical [PTH] Routine Labs on day of discharge: Preliminary micro results at discharge 06/20/22 02:16 Blood Culture - Preliminary Blood - Venous No growth after 24 hours. 06/20/22 02:16 Blood Culture - Preliminary Blood - Venous No growth after 24 hours. Discharge Plan Discharge Anticipated Discharge Date/Time: 06/21/22 10:22 Patient Disposition: Home, Self-Care Discharge Diagnosis: acute appendicitis s/p laparoscopic appendectomy Referrals: Sanford Lauren MD [Physician] - 2 Weeks Physician,Unknown J [Primary Care Provider] - 1 Week Discharge Medications: New oxycodone-acetaminophen [Percocet] 5-325 mg tablet 1 tab PO Q4-6H PRN (Reason: pain) Qty: 20 0RF Rx Instructions: Partial Fill upon patient request. ibuprofen 600 mg tablet 600 mg PO Q6H PRN (Reason: pain) Qty: 30 0RF Continued cetirizine [Zyrtec] 10 mg Tablet 10 mg PO DAILY Discharge Orders: Discharge Order (Routine); Ordered 06/21/22 Ordered By: Sanford Lauren Diet: Advance to usual diet Activity on Discharge: No heavy lifting Stand Alone Forms: Patient Portal Discharge page, Work/School Release Activity Restrictions/Additional Instructions: If the incision area is tender, you may apply an ice pack for short intervals (No more than 20 minutes on, followed by at least 20 minutes off). Do not apply heat. Do not use creams, lotions, or topical antibiotics unless instructed to do so by your surgeon. These can cause infection or allergic reaction. Ok to shower 24 hours after your surgery. Remove bandaids in 2 days and replace. You have steri strips (small white cloth strips) covering your incision- these will fall off ~1 week. Follow up in office with Dr. Lauren in 2 weeks. ([phone]) No heavy lifting (>10-20lbs) or strenuous activity! Call Your Doctor If: -Your temperature exceeds 101.5? F -You experience excessive pain or swelling -You have an unexpected reaction to medication -You have excessive bleeding -You experience continued vomiting/nausea -Your incision begins to separate -Your incision shows signs of infection such as increased redness, swelling, excessive pain, drainage (light blood or clear fluid is normal) or heat Care Plan Goals: Return to baseline health and gradual return to activity following recovery period. Health Concerns: acute appendicitis Plan of Treatment: s/p laparoscopic appendectomy pain control Assessment: Doing well post op.
--- NOTE | 2022-06-21 14:38 | HO.POSTANES ---
Post Anesthesia Evaluation Post Anesthesia Evaluation Vital Signs: Vital Signs Temp Pulse Resp BP Pulse Ox O2 Del Method 06/21/22 07:37 98.5 F 83 18 113/65 98 Room Air 06/21/22 03:57 97.0 F 78 16 106/68 97 Room Air Anesthesia: General Endotracheal-GETA Mental Status: Awake Pain Control: Satisfactory Nausea/Vomiting: None Hydration: Adequate Anesthesia-Related Issues: No Anes. Related Issues
== END 2022-06-21 14:48 | disposition home or self-care (01) | DRG 234 ==
LOC: HO.ED 06-20 00:04 → HO.EDOVER 06-20 00:37 → HO.S3 06-20 14:29
PROVIDERS: Physician Assistant; Surgery; Admitting Provider Surgery; Emergency Provider Emergency Medicine; Visit Provider Surgery
PROC: 0DTJ4ZZ Resection of Appendix, Percutaneous Endoscopic Approach (ICD-10-PCS; CPT 44970; principal; 2022-06-20 11:30)
DX: K35.80 Unspecified acute appendicitis (principal); J45.909 Unspecified asthma, uncomplicated; Z20.822 Contact with and (suspected) exposure to COVID-19; Z79.899 Other long term (current) drug therapy
CPT/HCPCS: 44970; 36415; 74177; 80053; 81003; 83605; 84484; 84702; 85025; 87040; 87635; 88304; 93005; 99285; J1100; J1885; J2250; J2270; J2405; J2543; J2795; J3010; Q9967

== ENCOUNTER 2023-03-25 14:23 | Emergency (ER) | payer OTHER, SELFPAY ==
[2023-03-25 14:37] VITALS: BP 108/68; PULSE 90; RESP 18; TEMP 36.7; O2SAT 97; BMI 29.1
--- NOTE | 2023-03-25 14:57 | ED_ITS ---
HPI - General Adult General Chief complaint: Upper Respiratory Symptoms Stated complaint: SOB, migraine, Time Seen by Provider: 03/25/23 16:25 Related Data Home Medications Medication Instructions Recorded Confirmed cetirizine 10 mg tablet (Zyrtec) 10 mg PO DAILY 06/20/22 06/20/22 Previous Rx's Medication Instructions Recorded ibuprofen 600 mg tablet 600 mg PO Q6H PRN pain #30 tabs 06/21/22 amoxicillin 500 mg capsule 500 mg PO TID #30 caps 03/25/23 hydroxyzine HCl 50 mg tablet 50 mg PO Q8H PRN allergies #20 tabs 03/25/23 Allergies Allergy/AdvReac Type Severity Reaction Status Date / Time No Known Allergies Allergy Verified 07/06/22 09:57 PMFSH Past Medical History Medical History Asthma Frequent headaches Surgical History History of tonsillectomy Family History Family History Mother No problems noted. Father No problems noted. Social History Social History Household Members: Family Housing: Apartment Do you presently have visiting nurse or other home services: No Alcohol intake: never Patient Tobacco Use Status: Never used Tobacco Smoked in Last 30 Days: No Use of substances other than those prescribed or required for medical reasons: No Advance Directives: No Advance Directives Information Provided: No service: No Current occupational status: employed Physical Exam ED Vital Signs: Vital Signs - 24 hr 03/25/23 14:37 Temperature 98.1 F Pulse Rate 90 Respiratory Rate 18 Blood Pressure 108/68 Pulse Oximetry 97 Oxygen Delivery Method Room Air BMI result Body Mass Index 29.1 Course Course Course Narrative: RME performed by Carie Carmen PA-C. Patient is a 22 year old assigned female at presenting to the emergency department with nausea, diarrhea, sore throat, and runny nose. Patient states that she is 15 weeks and is having some abdominal cramping. Labs and swabs ordered. Patient placed back in the waiting room pending room availability and results. Dr. Carrero saw this patient. He created and completed his own, separate note. Please refer to his note from 03/25/2023 for this patient's course and disposition. Medications Administered Discontinued Medications Generic Name Dose Route Start Last Admin Trade Name Tai PRN Reason Stop Dose Admin Amoxicillin 500 mg 03/25/23 16:46 03/25/23 16:56 Amoxicillin 500 Mg Capsule PO 03/25/23 16:47 500 mg ONCE ONE Administration Hydroxyzine HCl 50 mg 03/25/23 16:46 03/25/23 16:56 Hydroxyzine Hcl 50 Mg Tablet PO 03/25/23 16:47 50 mg ONCE ONE Administration Medical Decision Making Lab Data 03/25/23 15:05 03/25/23 15:05 Labs: Lab Results 03/25/23 03/25/23 03/25/23 Range/Units 14:42 15:05 15:05 WBC 9.0 (4.8-10.8) X10*3/uL RBC 4.50 (4.20-5.50) X10*6/uL Hgb 13.0 (12.0-16.0) g/dl Hct 38.0 (37.0-47.0) % MCV 84.4 (80.0-98.0) fL MCH 28.9 (27.0-33.0) pg MCHC 34.2 (31.0-35.0) g/dl RDW 12.2 (11.0-16.0) % Plt Count 249 (160-400) X10*3/uL MPV 9.6 (9.4-12.3) fL Immature Gran % (Auto) 0.6 H (0.0-0.4) % Neut % (Auto) 69.9 (45-73) % Lymph % (Auto) 18.6 L (20-40) % [place] % (Auto) 5.8 (2-11) % Eos % (Auto) 4.7 H (0-4) % Baso % (Auto) 0.4 (0-2) % Lymph # (Auto) 1.7 (1.2-4.9) X10*3/uL [place] # (Auto) 0.5 (0.1-1.2) X10*3/uL Eos # (Auto) 0.4 (0.0-0.4) X10*3/uL Baso # (Auto) 0.0 (0.0-0.2) X10*3/uL Abs Immat Gran (auto) 0.05 H (0.00-0.03) X10*3/uL Absolute Neuts (auto) 6.3 (2.0-8.3) x10*3/uL Absolute Nucleated RBC 0.000 (0.0-0.012) X10*3/uL Nucleated RBC % (auto) 0.0 (0.0-0.2) /100WBC Sodium 136 (135-145) mmol/L Potassium 3.8 (3.3-5.1) mmol/L Chloride 106 (96-108) mmol/L Carbon Dioxide 19 L (22-29) mmol/L Anion Gap 15 (12-20) BUN 7 L (9-16) mg/dL Creatinine 0.60 (0.5-1.4) mg/dL Estim Creat Clear Calc 119.8 Estimated GFR > 60 Random Glucose 85 (60-115) mg/dL Calcium 9.1 (8.4-10.2) mg/dL Magnesium 1.9 (1.6-2.6) mg/dL Total Bilirubin 0.3 (0.0-1.0) mg/dL AST 15 (5-31) U/L ALT 11 (0-31) U/L Alkaline Phosphatase 71 (39-117) U/L Total Protein 7.0 (6.5-8.0) g/dL Albumin 3.7 (3.5-5.0) g/dL Beta HCG, Quant 47755 mIU/mL Influenza Type A (PCR) NEGATIVE (Negative) Influenza Type B (PCR) NEGATIVE (Negative) RSV RNA Qual (PCR) NEGATIVE (Negative) SARS-CoV-2 RNA (RT-PCR) NEGATIVE (Negative) Discharge Plan Discharge Clinical Impression: Upper respiratory infection Patient Disposition: Home, Self-Care Instructions: Upper Respiratory Infection (ED) Additional Instructions: Take antibiotic as prescribed Atarax for allergies Follow-up with the pcp Prescriptions: New hydroxyzine HCl 50 mg tablet 50 mg PO Q8H PRN (Reason: allergies) Qty: 20 0RF amoxicillin 500 mg capsule 500 mg PO TID Qty: 30 0RF No Action cetirizine [Zyrtec] 10 mg Tablet 10 mg PO DAILY ibuprofen 600 mg tablet 600 mg PO Q6H PRN (Reason: pain) Qty: 30 0RF Stand Alone Forms: Work/School Release Interventions: ED Discharge Assessment Last Done: 03/25/23 17:02 Discharge Date/Time: 03/25/23 17:04
[2023-03-25 15:16] LABS: MANUAL DIFF FLAG NO
[2023-03-25 15:19] LABS: Basophils Percent Auto 0.4 % (0-2); Eosinophils Absolute Auto 0.4 X10*3/uL (0.0-0.4); Eosinophils Percent Auto 4.7 % (0-4); Imm Gran Abs Auto 0.05 X10*3/uL (0.00-0.03); Imm Gran Pct Auto 0.6 % (0.0-0.4); Lymphocytes Absolute Auto 1.7 X10*3/uL (1.2-4.9); Lymphocytes Percent Auto 18.6 % (20-40); Mean Corpuscular HGB Conc 34.2 g/dl (31.0-35.0); Mean Corpuscular Hemoglobin 28.9 pg (27.0-33.0); Mean Corpuscular Volume 84.4 fL (80.0-98.0); Mean Platelet Volume 9.6 fL (9.4-12.3); Monocytes Absolute Auto 0.5 X10*3/uL (0.1-1.2); Monocytes Percent Auto 5.8 % (2-11); Neutrophils Absolute Auto 6.3 x10*3/uL (2.0-8.3); Neutrophils Percent Auto 69.9 % (45-73); Platelet Count 249 X10*3/uL (160-400); Red Cell Distribution Width 12.2 % (11.0-16.0)
[2023-03-25 15:30] LABS: Influenza A PCR NEGATIVE (Negative); Influenza B PCR NEGATIVE (Negative); Resp Syncy Virus RNA Qual PCR NEGATIVE (Negative); SARS COV2 PCR INHOUSE NEGATIVE (Negative)
[2023-03-25 16:07] LABS: Alanine Aminotransferase 11 U/L (0-31); Albumin Level 3.7 g/dL (3.5-5.0); Alkaline Phosphatase 71 U/L (39-117); Anion Gap 15 (12-20); Aspartate Amino Transferase 15 U/L (5-31); Bilirubin Total 0.3 mg/dL (0.0-1.0); Blood Urea Nitrogen 7 mg/dL (9-16); Calcium 9.1 mg/dL (8.4-10.2); Carbon Dioxide 19 mmol/L (22-29); Chloride 106 mmol/L (96-108); Creatinine Clr Calc Pharmacy 119.8; Estimated Glomerular Filt Rate > 60; Glucose Random 85 mg/dL (60-115); Magnesium 1.9 mg/dL (1.6-2.6); Potassium 3.8 mmol/L (3.3-5.1); Sodium 136 mmol/L (135-145)
--- NOTE | 2023-03-25 16:26 | ED.GENADULT ---
HPI - General Adult General Chief complaint: Upper Respiratory Symptoms Stated complaint: SOB, migraine, Time Seen by Provider: 03/25/23 16:25 Source: patient Mode of arrival: ambulatory Limitations: no limitations History of Present Illness HPI narrative: Patient is 15 weeks followed by [facility] blood type O positive with history of allergies being feeling congested for last few days no fever no chills has headache no fever has slight nausea no urinary complaint patient does get yellowish discharge in the morning Related Data Home Medications Medication Instructions Recorded Confirmed cetirizine 10 mg tablet (Zyrtec) 10 mg PO DAILY 06/20/22 06/20/22 Previous Rx's Medication Instructions Recorded ibuprofen 600 mg tablet 600 mg PO Q6H PRN pain #30 tabs 06/21/22 amoxicillin 500 mg capsule 500 mg PO TID #30 caps 03/25/23 hydroxyzine HCl 50 mg tablet 50 mg PO Q8H PRN allergies #20 tabs 03/25/23 Allergies Allergy/AdvReac Type Severity Reaction Status Date / Time No Known Allergies Allergy Verified 07/06/22 09:57 Review of Systems Review of Systems: Yes all other systems are reviewed and are negative [facility] Past Medical History Medical History Asthma Frequent headaches Surgical History History of tonsillectomy Family History Family History Mother No problems noted. Father No problems noted. Social History Social History Household Members: Family Housing: Apartment Do you presently have visiting nurse or other home services: No Alcohol intake: never Patient Tobacco Use Status: Never used Tobacco Smoked in Last 30 Days: No Use of substances other than those prescribed or required for medical reasons: No Advance Directives: No Advance Directives Information Provided: No service: No Current occupational status: employed Physical Exam ED Vital Signs: Vital Signs - 24 hr 03/25/23 14:37 Temperature 98.1 F Pulse Rate 90 Respiratory Rate 18 Blood Pressure 108/68 Pulse Oximetry 97 Oxygen Delivery Method Room Air BMI result Body Mass Index 29.1 Appearance: Alert. Oriented X3. No acute distress. ENT: Pharynx normal. Oral Mucosa moist inflamed nasal turbinates with clear discharge Neck: Normal inspection. Neck supple. CVS: Normal heart rate and rhythm. Pulses normal. Respiratory: No respiratory distress. Equal air entry bilateral, Abdomen: Soft and nontender. Bowel sounds are present, gravid uterus+, no CVA tenderness Skin: Skin warm and dry. Normal skin color. Normal skin turgor. Extremities: No lower extremity edema. No calf tenderness Neuro: Oriented X 3. No motor deficit. Medical Decision Making Medical Decision Making [facility] Narrative: Patient with chronic allergies patient headache like frontal sinusitis discharge patient home on amoxicillin Lab Data [facility] Lab Attestation statement: I reviewed the patient's lab results. 03/25/23 15:05 03/25/23 15:05 Labs: Lab Results 03/25/23 03/25/23 03/25/23 Range/Units 14:42 15:05 15:05 WBC 9.0 (4.8-10.8) X10*3/uL RBC 4.50 (4.20-5.50) X10*6/uL Hgb 13.0 (12.0-16.0) g/dl Hct 38.0 (37.0-47.0) % MCV 84.4 (80.0-98.0) fL MCH 28.9 (27.0-33.0) pg MCHC 34.2 (31.0-35.0) g/dl RDW 12.2 (11.0-16.0) % Plt Count 249 (160-400) X10*3/uL MPV 9.6 (9.4-12.3) fL Immature Gran % (Auto) 0.6 H (0.0-0.4) % Neut % (Auto) 69.9 (45-73) % Lymph % (Auto) 18.6 L (20-40) % [place] % (Auto) 5.8 (2-11) % Eos % (Auto) 4.7 H (0-4) % Baso % (Auto) 0.4 (0-2) % Lymph # (Auto) 1.7 (1.2-4.9) X10*3/uL [place] # (Auto) 0.5 (0.1-1.2) X10*3/uL Eos # (Auto) 0.4 (0.0-0.4) X10*3/uL Baso # (Auto) 0.0 (0.0-0.2) X10*3/uL Abs Immat Gran (auto) 0.05 H (0.00-0.03) X10*3/uL Absolute Neuts (auto) 6.3 (2.0-8.3) x10*3/uL Absolute Nucleated RBC 0.000 (0.0-0.012) X10*3/uL Nucleated RBC % (auto) 0.0 (0.0-0.2) /100WBC Sodium 136 (135-145) mmol/L Potassium 3.8 (3.3-5.1) mmol/L Chloride 106 (96-108) mmol/L Carbon Dioxide 19 L (22-29) mmol/L Anion Gap 15 (12-20) BUN 7 L (9-16) mg/dL Creatinine 0.60 (0.5-1.4) mg/dL Estim Creat Clear Calc 119.8 Estimated GFR > 60 Random Glucose 85 (60-115) mg/dL Calcium 9.1 (8.4-10.2) mg/dL Magnesium 1.9 (1.6-2.6) mg/dL Total Bilirubin 0.3 (0.0-1.0) mg/dL AST 15 (5-31) U/L ALT 11 (0-31) U/L Alkaline Phosphatase 71 (39-117) U/L Total Protein 7.0 (6.5-8.0) g/dL Albumin 3.7 (3.5-5.0) g/dL Beta HCG, Quant 73483 mIU/mL Influenza Type A (PCR) NEGATIVE (Negative) Influenza Type B (PCR) NEGATIVE (Negative) RSV RNA Qual (PCR) NEGATIVE (Negative) SARS-CoV-2 RNA (RT-PCR) NEGATIVE (Negative) Discharge Plan Discharge Clinical Impression: Upper respiratory infection Patient Disposition: Home, Self-Care Instructions: Upper Respiratory Infection (ED) Additional Instructions: Take antibiotic as prescribed Atarax for allergies Follow-up with the pcp Prescriptions: New hydroxyzine HCl 50 mg tablet 50 mg PO Q8H PRN (Reason: allergies) Qty: 20 0RF amoxicillin 500 mg capsule 500 mg PO TID Qty: 30 0RF No Action cetirizine [Zyrtec] 10 mg Tablet 10 mg PO DAILY ibuprofen 600 mg tablet 600 mg PO Q6H PRN (Reason: pain) Qty: 30 0RF
[2023-03-25 16:35] LABS: HCG Quantitative 45386 mIU/mL
[2023-03-25] MEDS: hydrOXYzine HCL 50 MG TABLET PO (16:56)
[2023-03-25] MEDS: Amoxicillin 500 MG CAPSULE PO (16:56)
== END 2023-03-25 17:04 | disposition home or self-care (01) ==
PROVIDERS: Physician Assistant Medical; Emergency Provider Internal Medicine; PCP Pediatrics
DX: J06.9 Acute upper respiratory infection, unspecified (principal); G43.909 Migraine, unspecified, not intractable, without status migrainosus; R06.02 Shortness of breath; Z20.822 Contact with and (suspected) exposure to COVID-19; Z20.828 Contact with and (suspected) exposure to other viral communicable diseases; Z79.899 Other long term (current) drug therapy
CPT/HCPCS: 0241U; 36415; 80053; 83735; 84702; 85025; 99284